=== PATIENT | female | born 1975 | race Caucasian/White ===

== ENCOUNTER 2024-04-23 09:45 | Emergency (ER) | payer OTHER, SELFPAY ==
[2024-04-23 09:53] VITALS: BP 206/106
[2024-04-23 10:10] LABS: % Basophils 1.5 % (0-2); % Eosinophils 3.2 % (0-6); % Immature Granulocytes 0.3 % (0-0.5); % Lymphocytes 20.2 % (20.5-51.1); % Monocytes 4.4 % (1.7-9.3); % Neutrophils 70.4 % (42.2-75.2); Absolute Basophils 0.1 10^3/uL (0-0.2); Absolute Eosinophils 0.3 10^3/uL (0-0.7); Absolute Lymphocytes 1.6 10^3/uL (1.2-3.4); Absolute Monocytes 0.4 10^3/uL (0.1-0.6); Absolute Neutrophils 5.6 10^3/uL (1.4-6.5); Hematocrit 37.5 % (37.0-47.0); Hemoglobin 13.5 g/dL (12.0-16.0); Mean Corpuscular Hgb 31.5 pg (27.0-31.0); Mean Corpuscular Volume 87.6 fL (81.0-99.0); Mean Platelet Volume 8.9 fL (7.4-10.4); Nucleated Red Blood Cells % 0 %; Platelet Count 390 10^3/uL (130-400); Red Blood Cell Count 4.28 10^6/uL (4.20-5.40); Red Cell Dist. Width 11.9 % (11.5-14.5); White Blood Cell Count 7.9 10^3/uL (4.8-10.8)
[2024-04-23 10:23] LABS: HCG, Serum Qualitative Screen Negative
[2024-04-23 10:27] LABS: ALT (SGPT) 19 U/L (0-35); AST (SGOT) 26 U/L (14-36); Albumin 4.1 g/dl (3.5-5.0); Alkaline Phosphatase 81 U/L (38-126); Blood Urea Nitrogen 11 mg/dl (7-17); Calcium 9.1 mg/dl (8.4-10.2); Carbon Dioxide 24 mmol/L (22-30); Chloride 101 mmol/L (98-107); Glucose 114 mg/dl (70-99); Potassium 4.7 mmol/L (3.5-5.1); Sodium 136 mmol/L (135-145); Total Bilirubin 0.8 mg/dl (0.2-1.3); Total Protein 6.9 g/dl (6.3-8.2); eGFR > 60.00
[2024-04-23 10:35] LABS: Troponin I < 0.012 ng/ml
[2024-04-23 11:13] VITALS: BP 178/99
--- NOTE | 2024-04-23 11:29 | ED.GENMED ---
History of Present Illness
<Jake Catherine MD - Last Filed: 04/23/24 14:12>
General
Chief Complaint: Chest Pain
Source: patient
Exam Limitations: none
Time Seen by Provider: 04/23/24 11:12
Nursing documentation reviewed up to this point in time: agreed with
History of Present Illness
History of Present Illness:
48-year-old female with a past medical history of hypothyroidism presents to the emergency department for evaluation of lower chest/epigastric pain. Patient reports onset of symptoms around 4:30 AM and a had been constant until shortly after
arrival here when she says symptoms started to ronan. She reports a sharp pain in the epigastrium and radiates through to her back. Associated with nausea and nonbloody emesis. She says she has had some occasional loose stools as well. She says
she was mildly short of breath. No recent cough or fevers. She denies any urinary symptoms. Denies any vaginal bleeding, last menstrual period was a week ago. She says she has had similar symptoms in the past but they typically come and are
transient and go away quickly. No clear relation to meals and no exertional symptoms. She denies any known cardiac history. She denies any surgical history, denies history of gallstones.
Past History
<Jake Catherine MD - Last Filed: 04/23/24 14:12>
Past History
ED Past Medical History: Psychiatric
ED Past Surgical History: None
Social History
Tobacco: Non-smoker
Alcohol: Occasional
Drug: Marijuana
Review of Systems
<Jake Catherine MD - Last Filed: 04/23/24 14:12>
Review of Systems
All Other Systems: ROS reviewed and negative except as documented in HPI and ROS
Constitutional: Denies fever
Respiratory: Reports trouble breathing; Denies cough
Cardiac: Reports chest pain; Denies palpitations
ABD/GI: Reports abdominal pain, nausea, vomiting and diarrhea
: Denies dysuria, frequency, flank pain or bleeding
Musculoskeletal: Denies edema
Neurological: Denies headache
Phy Exam
<Jake Catherine MD - Last Filed: 04/23/24 14:12>
Physical Exam
Physical Exam:
General: Awake, alert, oriented x3; no acute distress
Head: Normocephalic, atraumatic
Eyes: Conjunctiva normal, sclera anicteric, pupils equal round and reactive to light bilaterally
Throat: Airway intact, handling secretions
Neck: Trachea midline, supple without meningismus
Lungs: Clear to auscultation bilaterally, no wheezing, rales, rhonchi
Heart: Regular rate and rhythm, no murmurs, gallops, or rubs
Abd: Soft, non distended, tender to palpation in the epigastrium and right upper quadrant
Neuro: Cranial nerves grossly intact, speech fluid
Skin: no rash
Extremities: No edema in extremities, equal pulses in all extremities
Scores
<Jake Catherine MD - Last Filed: 04/23/24 14:12>
Heart Failure Risk
Heart Failure Risk Score: Not Applicable
Heart Score for Chest Pain Patients
STEMI patient?: Not applicable
Withdrawal Assessment of Alcohol
Withdrawal Assessment Completed?: Not applicable
Course
<Jake Catherine MD - Last Filed: 04/23/24 14:12>
Orders/Labs/Results
Orders:
Orders
04/23/24 09:46
EKG [Electrocardiogram (*1)] Urgent
Reason for Study: Chest Pain
04/23/24 09:47
EKG- Treatment ONCE
04/23/24 09:57
Test Result ONCE
04/23/24 10:00
Complete Blood Count/With Diff Urgent
Comprehensive Metabolic Panel Urgent
HCG, Serum Qualitative Screen Urgent
Comment: Notify provider if positive test present
Lipase Urgent
Comment: ADD ON
Troponin I Urgent
04/23/24 11:08
CR Chest - 2 Views Urgent
Comment:
Reason For Exam: chest pain
04/23/24 11:12
COVID-19 Antigen Urgent
Source: Nasal Swab
Influenza A+B Rapid Molecular Urgent
ATIYA Source: Nasal Swab
Specimen Description:
04/23/24 11:29
Add On- LAB Urgent
Tests Added?: lipase
US Abdomen Complete/Upper Urgent
Comment:
Reason For Exam: epigastric pain, NV
04/23/24 14:11
CefTRIAXone [Rocephin] 1,000 mg IV NOW STA
MetroNIDAZOLE 500 MG/100 ML [Flagyl 500 mg] 100 ml IV NOW
04/23/24 14:15
0.9% Sodium Chloride 1000 ml [Nss] 1,000 ml IV 125 mls/hr
Abnormal Lab Results
04/23/24
10:00
MCH 31.5 H pg
(27.0-31.0)
Lymphocytes % 20.2 L %
(20.5-51.1)
Glucose 114 H mg/dl
(70-99)
04/23/24 10:00
04/23/24 10:00
Vital Signs
Initial and Last Documented VS:
Initial Vital Signs
Temp Pulse Resp BP Pulse Ox
98.2 F 83 22 206/106 99
04/23/24 09:53 04/23/24 09:53 04/23/24 09:53 04/23/24 09:53 04/23/24 09:53
Last Documented Vital Signs
Temp Pulse Resp BP Pulse Ox
98.2 F 68 17 161/92 97
04/23/24 09:53 04/23/24 14:47 04/23/24 14:47 04/23/24 14:47 04/23/24 14:47
<Lenore Quiles PA-C - Last Filed: 04/23/24 16:36>
Orders/Labs/Results
Orders:
Orders
04/23/24 09:46
EKG [Electrocardiogram (*1)] Urgent
Reason for Study: Chest Pain
04/23/24 09:47
EKG- Treatment ONCE
04/23/24 09:57
Test Result ONCE
04/23/24 10:00
Complete Blood Count/With Diff Urgent
Comprehensive Metabolic Panel Urgent
HCG, Serum Qualitative Screen Urgent
Comment: Notify provider if positive test present
Lipase Urgent
Comment: ADD ON
Troponin I Urgent
04/23/24 11:08
CR Chest - 2 Views Urgent
Comment:
Reason For Exam: chest pain
04/23/24 11:12
COVID-19 Antigen Urgent
Source: Nasal Swab
Influenza A+B Rapid Molecular Urgent
ATIYA Source: Nasal Swab
Specimen Description:
04/23/24 11:29
Add On- LAB Urgent
Tests Added?: lipase
US Abdomen Complete/Upper Urgent
Comment:
Reason For Exam: epigastric pain, NV
04/23/24 14:11
CefTRIAXone [Rocephin] 1,000 mg IV NOW STA
MetroNIDAZOLE 500 MG/100 ML [Flagyl 500 mg] 100 ml IV NOW
04/23/24 14:15
0.9% Sodium Chloride 1000 ml [Nss] 1,000 ml IV 125 mls/hr
Abnormal Lab Results
04/23/24
10:00
MCH 31.5 H pg
(27.0-31.0)
Lymphocytes % 20.2 L %
(20.5-51.1)
Glucose 114 H mg/dl
(70-99)
04/23/24 10:00
04/23/24 10:00
Vital Signs
Initial and Last Documented VS:
Initial Vital Signs
Temp Pulse Resp BP Pulse Ox
98.2 F 83 22 206/106 99
04/23/24 09:53 04/23/24 09:53 04/23/24 09:53 04/23/24 09:53 04/23/24 09:53
Last Documented Vital Signs
Temp Pulse Resp BP Pulse Ox
98.2 F 68 17 161/92 97
04/23/24 09:53 04/23/24 14:47 04/23/24 14:47 04/23/24 14:47 04/23/24 14:47
<Jake Catherine MD - Last Filed: 04/23/24 14:12>
MDM/Problems Addressed
Differential Diagnosis Includes:
Cholelithiasis, cholecystitis, pancreatitis, gastritis/PUD, anginal symptoms, PE and pneumonia less likely
MDM/Problems Addressed:
48-year-old female presents to the ER for evaluation of lower chest/epigastric pain rating to the back associated with nausea and vomiting. Symptoms have improved but not resolved. Initially hypertensive improved but still mildly hypertensive on
my assessment. Rest of vitals normal. Physical exam as above. EKG shows no STEMI. She had lab work sent off including a CBC and a CMP which were unremarkable. Lipase normal. hCG negative. Troponin undetectable. She had a chest x-ray which
showed no acute disease. She was sent for right upper quadrant ultrasound which showed findings concerning for acute cholecystitis. She still has some mild pain and tenderness although not as severe as this morning. Case discussed with general
surgery will treat with antibiotics admit for management of acute cholecystitis.
<Jake Catherine MD - Last Filed: 04/23/24 14:12>
*Radiology
Radiology exam reviewed: radiology read reviewed
*Pulse Oximetry
Patient hypoxic: no
*Critical Care Note
Total Time (30-74mins, 75-104mins- exclusive of procedures): Not Applicable
Data Reviewed
Source: patient and records
<Jake Catherine MD - Last Filed: 04/23/24 14:12>
Patient Management
Discussion with other providers: [facility] (Discussed with general surgeon)
Escalation/DeEscalation of care consider admission/obs:
Admission indicated
<Lenore Quiles PA-C - Last Filed: 04/23/24 16:36>
Update Note
Update Note:
Update 4:15PM: Dr. Smith down to see patient at bedside. After discussion between patient and Dr. Smith�patient prefers discharge home with outpatient cholecystectomy. Plan will be outpatient cholecystectomy in the next 1 to 2 weeks. General
surgery will contact patient on Thursday morning. Did observe patient and she is tolerating water without any nausea/vomiting. Patient remains without any pain at this time. Close return precautions discussed with patient including any signs of
infection, worsening abdominal pain, intractable nausea vomiting, etc. patient expressed understanding. Stable for discharge
ED Attending Note
<Jake Catherine MD - Last Filed: 04/23/24 14:12>
-
Portions of this chart may have been created with voice recognition software.� Occasional wrong word or��sound alike� substitutions may have occurred due to the inherent limitations of voice recognition software.
Discharge Plan
Departure
Patient Disposition: Admit
Date of Disposition: 04/23/24
Time of Disposition: 14:11
Admit to doctor: Luis
Presentation/result/management discussed w/ accepting MD/DO: Surgery
Discharge Problem:
Acute calculous cholecystitis
Prescriptions:
No Action
levothyroxine 125 MCG tablet
125 mcg PO DAILY
bupropion HCl 300 MG tablet extended release 24 hr
150 mg PO DAILY
levonorgestrel-ethinyl estrad [Seasonale (91)] 0.15 mg-30 mcg (91) Tablets,Dose Pack,3 Month
1 tab PO DAILY
Referrals:
NONE,* [Family Provider] -
Liang Rojas MD [Active] - Follow up in 1 week
Interventions
Interventions:
*Risk Screen - Suicide Last Done: 04/23/24 09:55
*General Assessment Last Done: 04/23/24 11:13
*Neglect/Abuse Screening Last Done: 04/23/24 09:55
*ED COVID-19 Vaccine History Last Done: 04/23/24 11:13
ED- Cardiac Assessment Last Done: 04/23/24 11:13
Discharge Date and Time
Print Language: PAP[place]
[2024-04-23 11:53] LABS: COVID-19 Antigen Negative (Negative)
[2024-04-23 12:01] LABS: Lipase 180 U/L (23-300)
[2024-04-23 13:40] VITALS: BP 169/98
[2024-04-23] MEDS: NSS 1000 IV (14:38)
[2024-04-23] MEDS: ROCEPHIN 1000 MG IV (14:38)
[2024-04-23] MEDS: FLAGYL 500 MG 100 IV (14:44)
[2024-04-23 14:47] VITALS: BP 161/92
--- NOTE | 2024-04-23 16:04 | CON.GS ---
Consultation
-
Reason for Consultation: ED consult for RUQ pain
Medical History
-
Chief Complaint: RUQ pain
History of Present Illness:
Ms Mar is a 48 yo female with a h/o hypothyroidism and who presents with RUQ pain into her back and epigastric area which was quite sharp and awakened her from sleep early this morning. She had associated nausea and vomiting with this
pain. Over the past few months, she has had similar episodes of pain always awakening her from sleep and then self resolving with the last episode being 2 weeks ago. She notes that her pain has currently resolved as has the nausea. She denies fevers
or chills. On exam, her abdomen is not tender or distended.
Past Medical History
Past Medical History: Hypothyroidism and Psychiatric
Past Surgical History:
Social History
Tobacco: Non-Smoker
Alcohol: Occasional
Drug: Marijuana
Employment: Not Employed (recently lost job)
Family History
Family History: Reviewed & Not Pertinent
Allergies / Home Medications
Allergy/AdvReac Type Severity Reaction Status Date / Time
amoxicillin Allergy Unknown Verified 12/10/17 16:15
Cephalosporins Allergy Unknown Verified 12/10/17 16:15
Penicillins Allergy Unknown Verified 12/10/17 16:15
�Medication �Instructions �Recorded �Confirmed �Type
bupropion HCl 300 mg 24 hr tablet, 150 mg PO DAILY 12/10/17 04/23/24 History
extended release
levothyroxine 125 mcg tablet 125 mcg PO DAILY 12/10/17 04/23/24 History
levonorgestrel 0.15 mg-ethinyl 1 tab PO DAILY 04/23/24 04/23/24 History
estradiol 30 mcg tablets,3 mos
pack(91)
Review of Systems
-
History Source: Patient
All other systems: Negative unless noted
A 10 point review of systems was completed, and was negative except as per HPI.
Physical Exam
Vital Signs
Temp Pulse Resp BP Pulse Ox
98.2 F 68 17 161/92 97
04/23/24 09:53 04/23/24 14:47 04/23/24 14:47 04/23/24 14:47 04/23/24 14:47
Lab Results
04/23/24 10:00
04/23/24 10:00
WBC 7.9 10^3/uL (4.8-10.8) 04/23/24 10:00
Hgb 13.5 g/dL (12.0-16.0) 04/23/24 10:00
Hct 37.5 % (37.0-47.0) 04/23/24 10:00
Plt Count 390 10^3/uL (130-400) 04/23/24 10:00
Abs Immat Gran (auto) 0.0 10^3/uL (0-0.05) 04/23/24 10:00
Neutrophils % 70.4 % (42.2-75.2) 04/23/24 10:00
Physical Exam
General: Well Developed and Well Nourished
HEENT: Moist Mucous Membranes
Respiratory: Non Labored Respirations
GI: Soft, Non Tender and Non Distended
Skin: Warm and Dry
Neuro: Awake, Alert and AO x 3
Psych: Calm
Data Reviewed
-
Ultrasound: Image Personally Visualized and interpreted, Report Reviewed by me, Discussed with Physician and Discussed with Patient
Labs: Labs Reviewed by me, Discussed with Physician and Discussed with Patient
Old Records: Reviewed
Assessment / Plan
-
48 yo female with h/o presenting with intermittent n/v/RUQ pain radiating into her mid back and epigastric area. US imaging demonstrates cholelithiasis without pericholecystic fluid and possible mild wall thickening. There is a stone in
the gallbladder neck. Her laboratory findings are wnl with normal LFT's and normal WBC's. On exam, there is no tenderness and overall she notes her symptoms have resolved consistent with biliary colic. Afebrile with stable vital signs.
Would recommend laparoscopic cholecystectomy for management, timing was discussed with the patient. As she is not demonstrating signs of active infection with normal labs and symptoms have currently resolved, this can be preformed as an outpatient
on a scheduled basis vs during this presentation tentively tomorrow. As she is currently asymptomatic, she would prefer to have this done on an outpatient scheduled basis.
--PO challenge and then ok for d/c if no return of pain
--Will plan close outpatient surgical follow up
[2024-04-23 17:00] VITALS: BP 138/90
== END 2024-04-23 17:08 | disposition home or self-care (01) ==
LOC: EMR 09:45
PROVIDERS: Emergency Medicine; Physician Assistant Medical; EMERGENCY PHYSICIAN Emergency Medicine
DX: K80.00 Calculus of gallbladder with acute cholecystitis without obstruction (principal); R11.2 Nausea with vomiting, unspecified; R19.7 Diarrhea, unspecified; R10.13 Epigastric pain; R06.02 Shortness of breath; R07.89 Other chest pain; Z11.52 Encounter for screening for COVID-19; E03.9 Hypothyroidism, unspecified; F41.9 Anxiety disorder, unspecified; F32.A Depression, unspecified; Z88.1 Allergy status to other antibiotic agents; Z88.3 Allergy status to other anti-infective agents
CPT/HCPCS: 99285; 96374; 96375; 71046; 76700; 80053; 83690; 84484; 84703; 85025; 87502; 87811; 93005

== ENCOUNTER 2024-06-17 06:19 | Day surgery (SDC) | payer OTHER, SELFPAY ==
[2024-06-17] VITALS (10 sets, daily range): BP systolic 143–172; BP diastolic 80–108; BMI 31.9
[2024-06-17] MEDS: NORMOSOL-R/PLASMALYTE-A 1000 IV (11:25)
[2024-06-17] MEDS: TYLENOL 1000 MG PO (11:51)
[2024-06-17] MEDS: ZOFRAN 4 MG IV (16:10)
== END 2024-06-17 17:12 | disposition home or self-care (01) ==
LOC: SDS 06:19
PROVIDERS: ATTENDING PHYSICIAN Surgery
DX: K80.10 Calculus of gallbladder with chronic cholecystitis without obstruction (principal)
CPT/HCPCS: 47563; 88304; 74300; 76000; 87070; A4300